=== PATIENT | male | born 1975 | race Two or more races ===

== ENCOUNTER 2024-11-26 08:09 | Outpatient (OUT) | payer OTHER, SELFPAY ==
--- NOTE | 2024-11-26 08:19 | XR_ITS ---
The [address] [address] Patient Name: МАРИНА LEYVA MRN: [id number] date: 1975 Sex: M Assigned Patient Location: [facility] Current Patient Location: [facility] Accession/Order Number: [id number] Exam Date: 11/26/2024 09:39 Report Date: 11/26/2024 09:40 At the request of: NON-STAFF PHYSICIAN MD Procedure: XR foot RT 2V Right foot 2 views. Reason for exam: Chronic right foot pain. COMPARISON: None. FINDINGS: No focal soft tissue abnormality is seen. No acute bony process. Joint spaces appear maintained without bony erosions. XR/XR foot RT 2V IMPRESSION: No acute bony process. Impression dictated by: Dayne Michelle Jr., D.O. 11/26/2024 9:40 AM Dictation Location: [place] [address] Electronically authenticated by: [id number] Date: 11/26/2024 09:40
== END 2024-11-26 08:10 | disposition home or self-care (01) ==
LOC: RAD 08:15
DX: M13.871 Other specified arthritis, right ankle and foot (principal)
CPT/HCPCS: 73620